=== PATIENT | female | born 1995 | race Caucasian/White ===

== ENCOUNTER 2021-09-13 15:21 | Emergency (ER) | payer MEDICAID, OTHER ==
[2021-09-13] MEDS ORDERED: ACETAMINOPHEN 500 MG TAB PO ONE (15:45)
[2021-09-13 18:24] VITALS: BP 135/88
== END 2021-09-13 18:41 | disposition home or self-care (01) ==
LOC: M ED 15:21 → EDBD 15:21 → M ED 18:41
DX: S63.501A Unspecified sprain of right wrist, initial encounter (principal); S20.229A Contusion of unspecified back wall of thorax, initial encounter; Y04.8XXA Assault by other bodily force, initial encounter; Y07.03 Male partner, perpetrator of maltreatment and neglect; Y92.018 Other place in single-family (private) house as the place of occurrence of the external cause; J45.909 Unspecified asthma, uncomplicated; F31.9 Bipolar disorder, unspecified; F41.9 Anxiety disorder, unspecified; F43.10 Post-traumatic stress disorder, unspecified; F11.11 Opioid abuse, in remission; F17.210 Nicotine dependence, cigarettes, uncomplicated